=== PATIENT | female | born 1975 | race Caucasian/White ===

== ENCOUNTER 2017-06-21 12:10 | Emergency (ER) | payer SELFPAY ==
[2017-06-21 12:40] VITALS: BP 140/94
== END 2017-06-21 12:40 | disposition home or self-care (01) ==
LOC: ED 12:10
DX: B86 Scabies (principal)

== ENCOUNTER 2017-11-11 15:11 | Emergency (ER) | payer OTHER ==
[~2017-11-11] VITALS: Ht 165.1 cm; Wt 65.8 kg
[2017-11-11 15:19] VITALS: BP 138/87
== END 2017-11-11 17:04 | disposition home or self-care (01) ==
LOC: ED 15:11
DX: M25.531 Pain in right wrist (principal); M65.4 Radial styloid tenosynovitis [de Quervain]; W01.0XXA Fall on same level from slipping, tripping and stumbling without subsequent striking against object, initial encounter; Y93.89 Activity, other specified; Y92.89 Other specified places as the place of occurrence of the external cause; Y99.8 Other external cause status